=== PATIENT | male | born 1965 | race Caucasian/White ===

== ENCOUNTER 2016-08-18 12:58 | Emergency (ER) | payer OTHER ==
[2016-08-18 15:21] LABS: ALBUMIN 4.3 g/dL (3.5-5.0); BILIRUBIN - TOTAL 0.4 mg/dL (0.1-1.0); CREATININE 1.4 mg/dL (0.7-1.2); POTASSIUM 4.4 mmol/L (3.5-5.1); TOTAL PROTEIN 7.3 g/dL (6.4-8.3)
[2016-08-18 15:48] LABS: BASOPHIL 0.4 % (0-2); EOSINOPHIL 1.1 % (0-5); HCT 49.2 % (42.0-52.0); HGB 17.7 g/dl (13.2-18.0); LYMPHOCYTE 17.2 % (15-48); MCH 36.2 pg (25.0-31.0); MCV 100.6 fL (78.0-100.0); MPV 11.6 fL (6.0-9.5); NEUTROPHIL 54.3 % (41-80); PLT 132 K/uL (150-400); RBC 4.89 M/uL (4.70-6.00); RDW 13.7 % (11.5-14.0)
[2016-08-18 15:49] LABS: WBC 5.5 K/uL (4.0-10.5)
== END 2016-08-18 17:41 | disposition home or self-care (01) ==
LOC: FER 12:58
PROVIDERS: Emergency Medicine
DX: J06.9 Acute upper respiratory infection, unspecified (principal); I10 Essential (primary) hypertension; G40.909 Epilepsy, unspecified, not intractable, without status epilepticus; Z79.899 Other long term (current) drug therapy; Z88.5 Allergy status to narcotic agent; Z90.5 Acquired absence of kidney
CPT/HCPCS: 36415; 80053; 85025; 87450; 87804; 87899; 94640

== ENCOUNTER 2021-02-07 02:00 | Emergency (ER) | payer OTHER ==
[~2021-02-07 02:00] MED LIST: ASPIRIN EC81 MG PO; ASPIRIN325 MG PO; BENTYL10 MG PO; CILOSTAZOL100 MG PO; COREG12.5 MG PO; COREG25 MG PO; DEPAKOTE500 MG PO; LIPITOR80 MG PO; NORCO 5-325 TA1 EACH PO; OXTELLAR XR600 MG PO; PERCOCET 5-3251 EACH PO; PLAVIX75 MG PO; PRINIVIL20 MG PO; PROTONIX 40MG T40 MG PO; REPATHA SU140 MG/1 M SC; SINGULAIR10 MG PO; ULTRAM50 MG PO; ZOLOFT 25MG TAB25 MG PO; ZYRTEC10 M3 PO
[2021-02-07 02:48] LABS: ALBUMIN 3.5 g/dL (3.4-5.0); BILIRUBIN - TOTAL 0.4 mg/dL (0.2-1.0); BUN/CREAT RATIO (CALC) 12.4 RATIO; CREATININE 1.13 mg/dL (0.67-1.17); GLOBULIN (CALCULATION) 3.7 g/dL; POTASSIUM 4.3 mmol/L (3.5-5.1); TOTAL PROTEIN 7.2 g/dL (6.4-8.2)
[2021-02-07 02:48] LABS: BILIRUBIN 1+ mg/dL (NEGATIVE); BLOOD 3+ Ery/uL (NEGATIVE); CLARITY CLEAR (CLEAR); COLOR YELLOW (YELLOW); GLUCOSE (U) NORMAL (NORMAL); LEUKOCYTES NEGATIVE Leu/uL (NEGATIVE); NITRITE NEGATIVE (NEGATIVE); PROTEIN TRACE (LOW) mg/dL (NEGATIVE); SPECIFIC GRAVITY 1.025 (1.001-1.030)
[2021-02-07 02:49] LABS: BASOPHIL 0.3 % (0-2); EOSINOPHIL 0.3 & (0-5); HCT 40.4 % (42.0-52.0); HGB 15.2 g/dl (13.2-18.0); LYMPHOCYTE 21.2 % (15-48); MCH 38.8 pg (25.0-31.0); MCHC 37.6 g/dL (32.0-36.0); MCV 103.1 fL (78.0-100.0); MONOCYTE 15.9 % (0-12); MPV 11.1 fL (6.0-9.5); PLT 123 K/uL (150-400); RBC 3.92 M/uL (4.70-6.00); RDW 14.6 % (11.5-14.0); WBC 3.59 K/uL (4.0-10.5)
[2021-02-07 02:52] LABS: BACTERIA TRACE; URINARY WBC RARE
== END 2021-02-07 06:40 | disposition home or self-care (01) ==
LOC: FER 02:00
PROVIDERS: Emergency Medicine
DX: K57.90 Diverticulosis of intestine, part unspecified, without perforation or abscess without bleeding (principal); U07.1 COVID-19; R31.9 Hematuria, unspecified; N18.9 Chronic kidney disease, unspecified; I25.2 Old myocardial infarction; Z88.5 Allergy status to narcotic agent
CPT/HCPCS: 36415; 80053; 81001; 83690; 85025; J1170; J2405; J7030; Q9967; U0002

== ENCOUNTER 2021-02-08 21:48 | Emergency (ER) | payer OTHER ==
[2021-02-09 02:58] LABS: BILIRUBIN - TOTAL 0.5 mg/dL (0.2-1.0); CREATININE 1.14 mg/dL (0.67-1.17); GLOBULIN (CALCULATION) 3.8 g/dL; POTASSIUM 3.8 mmol/L (3.5-5.1); TOTAL PROTEIN 6.8 g/dL (6.4-8.2)
[2021-02-09 03:05] LABS: HCT 40.4 % (42.0-52.0); HGB 14.6 g/dl (13.2-18.0); MCH 35.9 pg (25.0-31.0); MCHC 36.1 g/dL (32.0-36.0); MCV 99.3 fL (78.0-100.0); RBC 4.07 M/uL (4.70-6.00); RDW 13.4 % (11.5-14.0); WBC 2.7 K/uL (4.0-10.5)
[2021-02-09 03:06] LABS: BASOPHIL 0 % (0-2); EOSINOPHIL 0 % (0-5); LYMPHOCYTE 26.4 % (15-48); MONOCYTE 20.7 % (0-12); MPV 10.9 fL (6.0-9.5); NEUTROPHIL 52.5 % (41-80); PLT 80 K/uL (150-400)
[2021-02-09 03:08] LABS: NRBC 0
== END 2021-02-09 05:48 | disposition home or self-care (01) ==
LOC: FER 21:48
PROVIDERS: Emergency Medicine
DX: R10.9 Unspecified abdominal pain (principal); R11.0 Nausea; K57.30 Diverticulosis of large intestine without perforation or abscess without bleeding; Z88.5 Allergy status to narcotic agent
CPT/HCPCS: 36415; 80053; 83690; 85025; J1170; J2405; J7030